=== PATIENT | male | born 1970 | race Hispanic/Latino ===

== ENCOUNTER 2023-05-02 12:08 | Day surgery (SDC) | payer BC ==
[2023-04-25 10:17] LABS: Absolute Lymphocytes (CBC) 1.8 K/uL (0.7-4.9); Hematocrit 35.8 % (39.6-49.0); MCV 92.6 fL (80-100); Platelets 459 thou/uL (152-406); RBC Red Blood Cell Count 3.87 M/uL (4.33-5.43)
[2023-04-25 10:22] LABS: Protime INR 1.01
[2023-04-25 10:29] LABS: Potassium 4.8 mEq/L (3.5-5.1)
--- NOTE | 2023-04-25 12:52 | EKG ---
Test Date: 2023-04-25 Test Time: 11:11:16 Labor Supervisor: KAMLESH MEASUREMENT RESULTS: Intervals: Rate: 66 ID: [id number] QRSD: 88 QT: 378 QTc: 396 [place]: P: -12 ID: [id number] QRS: 103 T: 57 INTERPRETIVE STATEMENTS: Normal sinus rhythm Rightward axis Borderline ECG No previous ECG available for comparison Electronically Signed On 04-25-23 12:51:57 COMPUTER SUPPORT SPECIALIST by Chaz Singh
--- NOTE | 2023-04-25 13:12 | RAD REPORT ---
EXAM DESCRIPTION: RADChest Single View04/25/2023 10:23 am CLINICAL HISTORY: pre-op. Hypertension COMPARISON: Abdomen 1 View (KUB) dated 03/24/2023 TECHNIQUE: Portable AP view of the chest. FINDINGS: The lungs are clear. No pneumothorax or effusion. The cardiomediastinal contours are unre markable. IMPRESSION: No acute cardiopulmonary process.
[2023-05-02] MEDS: NA CHLORIDE 0.9% 1,000 ML ONE (12:15)
--- NOTE | 2023-05-02 13:11 | RAD REPORT ---
EXAM DESCRIPTION: RAD - Abdomen 1 View (KUB) - 05/02/2023 1:05 pm CLINICAL HISTORY: SURGERY COMPARISON: Abdomen 1 View (KUB) dated 03/24/2023; Chest Single View dated 04/25/2023 TECHNIQUE: Single AP view of the abdomen. FINDINGS: Nonobstructive bowel gas pattern. No air-fluid levels, free air, or pneumatosis. No suspic ious calcifications. Pain ovoid 11 mm radiodensity in the left flank, now seen at the level of L3-4 disc space, retracted more proximally compared to the prior radiograph. No significant bony abnormality. IMPRESSION: More proximal displacement of left flank radiodensity suggestive of a ureteral calculus.
[2023-05-02] MEDS: CEFAZOLIN SODIUM 1 GM/VIAL ONE (14:50)
[2023-05-02] MEDS ORDERED: LIDOCAINE 1% MPF 5 ML VIAL ONE (16:17)
[2023-05-02] MEDS ORDERED: propofoL 200 MG/20 ML VIAL IV ONE (16:17)
[2023-05-02] MEDS ORDERED: FENTANYL CITR 100 MCG/2 ML ONE (16:35)
[2023-05-02] MEDS ORDERED: MIDAZOLAM HCL 2 MG/2 ML INJ ONE (16:35)
[2023-05-02] MEDS ORDERED: ONDANSETRON 4 MG/2 ML VIAL ONE (17:02)
[2023-05-02] MEDS ORDERED: dexAMETHasone 10 MG/ML VIAL ONE (17:02)
[2023-05-02] MEDS ORDERED: CODEINE 30MG/APAP 300MG TAB PO PRN (17:51)
[2023-05-02] MEDS ORDERED: PHENAZOPYRIDINE 100MG TAB PO ONE (18:48)
[2023-05-02] MEDS: PHENAZOPYRIDINE 100MG TAB PO ONE (18:50)
[2023-05-02 19:44] VITALS: BP 130/68; TEMP 97; O2SAT 97
--- NOTE | 2023-05-02 20:38 | OP ---
Surgeon: ANGELA PERALES Preoperative Diagnoses: 1.Left ureterolithiasis. 2.Acute kidney injury. Postoperative Diagnoses: 1.Left ureterolithiasis. 2.Acute kidney injury. 3.Impacted left proximal ureterolithiasis. 4.Marked ureteral tortuosity. 5.Marked left hydronephrosis. Principal Procedures: 1.Cystoscopy. 2.Left retrograde pyelography. 3.Left attempted, but failed ureteral stent placement. Indication For Procedure: Mr. Calero presented to the [facility] and underwent evaluation reveal ing the presence of an 11 to 13 mm proximal ureteral obstructing calculus. Because he had not noted any significant pain, the stone had likely been present for several months. He did note a slight deg ree of flank discomfort that began several months ago, but thought it might be due to some other back issues. His renal function was originally associated with creatinine of 1.09, but after counseling and electing to proceed with left extracorporeal shock wave lithotripsy, his preoperative labs reveal ed the presence of an increase in his creatinine to 1.5, suggestive of the beginnings of acute kidney injury. Unfortunately, since the shockwave lithotripsy equipment would not be available until next month, he was advised not to continue to wait, but instead to decompress the kidney's obstruction and we would plan an attempt at left ureteral stent. 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 Procedure In Detail: The patient was consented in the preoperative holding area before being transfe rred to the operative suite, where general anesthesia was induced. He was given Ancef 2 g IV antimic robial prophylaxis, and pneumo boots were provided for DVT prophylaxis. He was placed in the lithoto my position, padded and secured to the table appropriately, and his genitalia was prepped with Hibicl ens before being draped in standard fashion. The case was begun using a 22-Bolivian rigid cystoscope t o traverse the urethra and into the bladder with ease. The bladder was decompressed of fluid and uri ne, and the ureteral orifices were identified in the orthotopic location. Because the left ureteral orifice was somewhat stenotic, it required the use of the tip of a Sensor wire to gain access for the 5-Bolivian ureteral access catheter. I then performed a retrograde pyelography study. Left retrograde pyelogram: Using a 70:30 mixture of Omnipaque and saline, contrast was injected via the 5-Bolivian ureteral access catheter and did propagate up a very markedly tortuous distal ureter bef ore entering the mid and what was eventually found to be the mid proximal ureter, where there was sig nificant obstruction that prohibited further contrast progression. An additional bolus of contrast w as given until a wisp of contrast was seen to enter into the mid and lower pole calices which were ma rkedly dilated. The renal pelvis and the proximal ureter were not distinctly delineated. As a resul t, I utilized a Sensor wire, passed via the 5-Bolivian ureteral access catheter, and was able to naviga te it up the distal into the mid ureter where it encountered a point of obstruction in the mid proxim al ureter. With some manipulation of the Sensor wire, I was able to get the wire to go more proximal to this point of obstruction, but it seem to deviate more superomedially than desired, suspicious fo r possible extraluminal traverse of the wire. So, I again retrograde instilled contrast mixture via the 5-Bolivian ureteral access catheter, and unfortunately it did confirm extraluminal extravasation. Additional attempts were then performed using an angled Sensor wire as well as the straight Sensor wi re again, but I was unsuccessful at getting the wire to go beyond the point of obstruction and succes sfully into the proximal ureter and collecting system. As a result, after several attempts, I aborte d and decompressed the patient's bladder of fluid and urine. He was then awakened from general anest hesia after being taken out of the lithotomy position. He was then transferred to a stretcher and th en transferred to the recovery room in good condition. Complications: Sensor wire ureteral perforation/extraluminal extravasation. Discharge Disposition: He will require prompt placement of a left percutaneous nephrostomy tube with possible nephroureteral stent placed if feasible. Subsequently, he will require definitive manageme nt of his large obstructing calculus, which could potentially be done using shockwave lithotripsy. WR/MODL Voice ID: [id number] Report ID: [id number]
--- NOTE | 2023-05-02 21:30 | RAD REPORT ---
EXAM DESCRIPTION: RAD - Cystography - 05/02/2023 5:31 pm CLINICAL HISTORY: CYSTO COMPARISON: None available. FINDINGS: Thirteen Images were sent to PACS, documenting fluoroscopy utilization during Cystouretero gram. No radiologist was available for the procedure, nor will any image interpretation he provided. Please refer to the procedural report for additional details. Fluoroscopy time: 2:03 minutes. IMPRESSION: Documentation of fluoroscopy utilization as above.
== END 2023-05-02 19:00 | disposition home or self-care (01) ==
LOC: OR 12:08
PROVIDERS: ATTEND Urology
PROC: 0T778DZ Dilation of Left Ureter with Intraluminal Device, Via Natural or Artificial Opening Endoscopic (ICD-10-PCS; principal; 2023-05-02 14:15)
DX: N20.1 Calculus of ureter (principal); N17.9 Acute kidney failure, unspecified; N13.8 Other obstructive and reflux uropathy; N13.30 Unspecified hydronephrosis
CPT/HCPCS: 36415; 51600; 71045; 74018; 74430; 80048; 82947; 85025; 85610; 87086; 87088; 93005; J0690; J1100; J2001; J2250; J2405; J2704; J3010; J7030

== ENCOUNTER 2023-06-06 10:45 | Day surgery (SDC) | payer BC ==
[2023-05-25 16:08] LABS: PT Prothrombin Time 13.6 SECONDS (9.5-12.5); Protime INR 1.24
[2023-05-25 16:09] LABS: Absolute Basophils 0.1 K/uL (0-0.5); Absolute Eosinophils 0.2 K/uL (0-0.5); Absolute Lymphocytes (CBC) 1.4 K/uL (0.7-4.9); Absolute Monocytes 0.6 K/uL (0.1-1.3); Absolute Neutrophil 6.4 K/uL (1.8-8.0); Basophils % 0.6 % (0-1.3); Eosinophils % 2.7 % (0-4.4); Hematocrit 31.5 % (39.6-49.0); Lymphocytes % 16.2 % (15.3-44.8); MCH 32.1 pg (27.0-35.0); MCHC 34.8 g/dL (32.0-36.0); MCV 92.1 fL (80-100); MPV 6.8 fL (7.6-11.3); Monocytes % 6.5 % (3.3-12.3); Platelets 755 thou/uL (152-406); RBC Red Blood Cell Count 3.42 M/uL (4.33-5.43); Red Cell Distribution Width 13.3 % (12.1-15.2)
[2023-05-25 17:10] LABS: Blood Morphology Comment NOT SEEN (NOT SEEN); Platelet Estimate INCR; White Blood Cell Scan OK (OK)
[2023-06-06] MEDS ORDERED: FENTANYL CITR 100 MCG/2 ML ONE (11:17)
[2023-06-06] MEDS ORDERED: propofoL 200 MG/20 ML VIAL IV ONE (11:17)
[2023-06-06] MEDS ORDERED: LIDOCAINE 1% MPF 5 ML VIAL ONE (11:17)
[2023-06-06] MEDS ORDERED: ONDANSETRON 4 MG/2 ML VIAL ONE (11:17)
[2023-06-06] MEDS ORDERED: MIDAZOLAM HCL 2 MG/2 ML INJ ONE (11:17)
[2023-06-06] MEDS ORDERED: ROCURONIUM 50 MG/5 ML VIAL IV ONE (11:17)
[2023-06-06] MEDS: NA CHLORIDE 0.9% 1,000 ML ONE (11:20)
[2023-06-06] MEDS ORDERED: CEFTRIAXONE 1000 MG/VIAL ONE (11:49)
[2023-06-06] MEDS ORDERED: NA CHLORIDE 0.9% 100 ML ONE (11:51)
[2023-06-06] MEDS ORDERED: NA CHLORIDE 0.9% 1,000 ML ONE (13:04)
[2023-06-06] MEDS ORDERED: GLYCOPYRROLATE 0.2 MG/ML SYR ONE (13:13)
[2023-06-06] MEDS ORDERED: NEOSTIGMINE 1 MG/ML -10 ML VIAL ONE (13:13)
[2023-06-06] MEDS: ONDANSETRON 4 MG/2 ML VIAL ONE (13:39)
--- NOTE | 2023-06-06 13:48 | RAD REPORT ---
EXAM DESCRIPTION: RAD - Urethrocystogrphy Retrograde - 06/06/2023 1:38 pm CLINICAL HISTORY: LEFT STENT COMPARISON: Cystography dated 05/02/2023 FINDINGS: Total fluoro time: 0.16 minutes
[2023-06-06] MEDS: MEPERIDINE HCL 25 MG/ML SYR ONE (13:53)
[2023-06-06] MEDS: HYDROCODONE/APAP 5/325 MG TAB ONE (14:50)
--- NOTE | 2023-06-06 15:15 | OP ---
Surgeon: ANGELA PERALES Preoperative Diagnoses: 1.Impacted left proximal ureterolithiasis -- 11 mm. 2.Status post left percutaneous nephroureteral stent placement. Postoperative Diagnoses: 1.Impacted left proximal ureterolithiasis -- 11 mm. 2.Status post left percutaneous nephroureteral stent placement. Principal Procedures: 1.Cystoscopy. 2.Removal of left nephroureteral stent. 3.Left ureteroscopy with laser lithotripsy. 4.Left retrograde pyelography. 5.Internalization of left double-J ureteral stent. Indication For Procedure: Mr. Calero presented to the Urology Clinic with an obstructing 11 mm proxi mal left ureteral calculus. He underwent attempted left ureteral stent placement because of acute ki dney injury noted, and unfortunately, a stent could not be placed in a retrograde fashion. As a resu lt, he underwent placement of a nephrostomy tube with nephroureteral stent and presents today for def initive management of his impacted ureteral calculus. Description Of Procedure: The patient was consented in the preoperative holding area before being tr ansferred to the operative suite where general anesthesia was induced. He was given ceftriaxone 1 g IV antimicrobial prophylaxis, and pneumo boots were provided for DVT prophylaxis. He was placed in t he lithotomy position, padded and secured to the table appropriately, and positioned in such a way th at I could access the left flank region and the nephrostomy tube. I removed the dressing over the ne phrostomy tube, and I prepped the area around the nephrostomy tube including the tube itself with Chl oraPrep and draped the area beneath the tube for clean procedure. I first began by injecting contras t via the nephrostomy tube and did observe the contrast emanate down the tube and into his bladder. I thus passed a Sensor wire via the nephrostomy tube after cutting the suture releasing it from the s kin and removing the proximal coil in the kidney by pulling the tube out slightly, while advancing th e wire via the tube ultimately coiling it within the bladder and able to remove the nephrostomy tube leaving the wire in place. I then turned my attention cystoscopically where I exchanged the wire usi ng a 5-Tuvaluan ureteral access catheter passed via his urethra and out his left flank, so that the kyung ppy end of the Sensor wire that was originally placed ended up on the kidney side. I then removed th e 5-Tuvaluan ureteral access catheter and employed a semi-rigid ureteroscope and pressurized saline irr igation to traverse the urethra and enter his bladder and navigating up the distal into the mid and p roximal ureter where the stone was encountered. It was indeed noted to be impacted and somewhat dug in to the ureter, but despite this, I was able to utilize a 272 nm laser fiber at power setting of 0. 8 joules and 10 hertz increased to 15 hertz in order to quickly fragment the stone and remove it from its impacted location within the ureter. The area of the ureter that seemed involved with the keyonac payam calculus was from the 12 o'clock position extending all the way around clockwise to around the 10 o'clock position. Fortunately, the degree of impaction seemed mostly superficial involving the muco sa with limited submucosal involvement except in spots. As a result, I ensured that all calculi had been removed from within the mucosa and then decreased the power to 0.4 joules and 30 hertz to ensure the fragments were dust and around the size of the laser fiber, but no larger than the Sensor wire, which is in place. Once I was confident that the stone was adequately managed, I then utilized the u reteroscope to perform a retrograde study. Using fluoroscopic imagery, I performed a left retrograde pyelogram by injecting a 70:30 mixture of Omnipaque and saline via the ureteroscope and watched it p ropagate up the mid into the proximal ureter before entering the renal pelvis and calices. I then re moved the ureteroscope and over the indwelling Sensor wire, which was extending out of his flank, I b acked the wire into the renal pelvis and then coiled it within the upper pole calyx. Originally, the percutaneous nephrostomy tube was coming in through the lower pole calices. I then back-loaded the cystoscope over the safety wire and passed a 6-Tuvaluan by 24 cm double-J ureteral stent with a coil ob served fluoroscopically in the renal pelvis and one cystoscopically formed in his bladder. I then de compressed his bladder of fluid and urine, and the patient was taken out of the lithotomy position af ter I removed the scope. A dressing of gauze and tape was placed over the nephrostomy tube site and his flank, and he was then awakened from general anesthesia, transferred to a stretcher, and then tra nsferred to the recovery room in good condition. Complications: None. Discharge Disposition: I would like for him to keep the ureteral stent for at least 4 to 6 weeks bef ore planned removal in the office cystoscopically. He will subsequently need to be considered for de finitive metabolic stone formation profile assessment if he is a recurrent stone former. I did couns el the patient and his on the high risk of ureteral stricture formation given the impacted natur e of the calculus; so subsequently, he will require a renal ultrasound obtained somewhere between 6 w eeks and 3 months after the stent is extracted. ANGELINA/VIKKI Voice ID: [id number] Report ID: [id number]
[2023-06-06 15:56] VITALS: BP 108/68; TEMP 97.7; O2SAT 100
== END 2023-06-06 15:30 | disposition home or self-care (01) ==
LOC: OR 10:45
PROVIDERS: ATTEND Urology
PROC: 0T778DZ Dilation of Left Ureter with Intraluminal Device, Via Natural or Artificial Opening Endoscopic (ICD-10-PCS; 2023-06-06)
PROC: 0TF78ZZ Fragmentation in Left Ureter, Via Natural or Artificial Opening Endoscopic (ICD-10-PCS; principal; 2023-06-06 12:00)
DX: N20.1 Calculus of ureter (principal); E11.9 Type 2 diabetes mellitus without complications; E78.00 Pure hypercholesterolemia, unspecified
CPT/HCPCS: 87088; 85025; 87086 ×2; 80048; 36415; 85610; 82947 ×2; 74450; 51610; 52356; J2704; J2710; J2001; J2250; J3010; J2175; J2405 ×2; J7030 ×2; J0696